=== PATIENT | male | born 1980 | race Caucasian/White ===

== ENCOUNTER 2025-03-25 07:59 | Outpatient (CLI) | payer OTHER, SELFPAY ==
--- NOTE | 2025-03-25 08:15 | MR_ITS ---
EXAM: MRI of the RIGHT KNEE, without contrast CLINICAL INFORMATION: Male, 45 years old, with right knee pain. INDICATION: Evaluate knee pain. PRIOR SURGERY: None reported. PLAIN FILMS: None available. COMPARISONS: No prior MRIs available. TECHNICAL INFORMATION: Using a 1.5T MR scanner and a localizing surface coil: sagittals: PD, T2FS coronals: PD, STIR axials: T1, PDFS SEDATION: None CONTRAST: None FINDINGS: Knee joint: Effusion: Mild-moderate right knee effusion. Popliteal cyst: Tiny, unruptured popliteal (Suggs's) cyst. Loose bodies: None. Subcutaneous and extra-articular soft tissues: Unremarkable. Ligaments: ACL: Intact ACL anteromedial and posterolateral bundles, without sprain or tear. PCL: Intact PCL, without acute or chronic injury. MCL: Intact MCL superficial and deep layers, without injury. LCL: Intact LCL, without injury. Posterolateral corner: No posterolateral corner soft tissue injury. Popliteus, biceps femoris, iliotibial band, popliteofibular ligament and lateral gastrocnemius are intact. Posteromedial corner: No posteromedial corner soft tissue injury. Semimembranosus, pes anserine tendons and posterior oblique ligament are without injury, tendinopathy or bursitis. Extensor mechanism: Patellar tendon: Intact, without tendinopathy. Quadriceps tendon: Intact, without tendinopathy. Retinacula: Medial and lateral retinacula are intact. Fat pads: Unremarkable infrapatellar Hoffa's, quadriceps and prefemoral fat pads. Medial compartment: Medial meniscus: Oblique horizontal undersurface tearing of the posterior horn and body of the medial meniscus measuring 2.9 cm (sagittal T2FS series 8 images 20-25 and coronal PD series 6 images 18-21). Meniscal extrusion measures 4 mm. A 10 x 3 x 1 mm flap fragment is located superior to the posterior horn/root junction (sagittal PDFS series 8 image 19 and coronal STIR series 5 image 20). Medial femoral condyle & tibial plateau: Broad-based mild grade II chondromalacia throughout the central, weightbearing aspect of the medial compartment, mild reactive osseous changes and minimal marginal osteophytosis. Lateral compartment: Lateral meniscus: No articular surface, meniscosynovial junction or root tear. No displacement, extrusion or parameniscal cyst. Lateral femoral condyle: No chondromalacia or osteochondral abnormality. Lateral tibial plateau: No chondromalacia or osteochondral abnormality. Patellofemoral joint: Patella: No chondromalacia or osteochondral abnormality. Trochlea: No chondromalacia or osteochondral abnormality. Proximal tibiofibular joint: Unremarkable, without evidence of ligament sprain injury, joint effusion or adjacent marrow edema. Bones: No stress/occult fractures or other marrow edema/pathology. IMPRESSION: 1. Complex oblique horizontal undersurface tearing of the posterior horn and body medial meniscus measuring 2.9 cm, with 4 mm of meniscal extrusion and a 10 x 3 x 1 mm flap fragment located superior to the posterior horn/root junction. 2. Minimal osteoarthritis of the medial compartment. 3. Mild-moderate knee joint effusion with a tiny, unruptured popliteal (Suggs's) cyst. 4. No cruciate or collateral ligament sprain/tear. 5. No lateral meniscal tear. 6. No osteochondral abnormality of the lateral or patellofemoral compartment. BC Electronically signed on 03/25/2025 12:44:00 PM by Jovani Perdomo M.D.
== END 2025-03-25 08:00 | disposition home or self-care (01) ==
LOC: MRI 08:00
PROVIDERS: PCP Internal Medicine; Visit Provider Internal Medicine
DX: M23.231 Derangement of other medial meniscus due to old tear or injury, right knee (principal); M17.11 Unilateral primary osteoarthritis, right knee; M25.461 Effusion, right knee; M71.21 Synovial cyst of popliteal space [Baker], right knee; M25.561 Pain in right knee
CPT/HCPCS: 73721